=== PATIENT | female | born 1990 | race Caucasian/White ===

== ENCOUNTER 2016-09-16 09:29 | Emergency (ER) | payer BC ==
[2016-09-16 09:53] VITALS: BP 108/85
--- NOTE | 2016-09-16 10:50 | UC ---
Skin Complaint HPI - HPI Summary HPI Summary: This is an otherwise healthy 25 yo female who presented with c/o L ankle pain, swelling and erythema with associated rash. She noticed the redness and swelling yesterday associated with flu like symptoms. She did not check her temp at that time. Reports generalized aching, but no other joint involvement. She has blisters from her shoes on the back of both heels which she had covered with a BandAid. There is a rash over the medial aspect of the ankle. No recent injury or other trauma. - History of Current Complaint Chief Complaint: UCSkin Time Seen by Provider: 09/16/16 10:08 Stated Complaint: RASH LEFT FOOT ACHY Hx Last Menstrual Period: 09/21/15 - Allergy/Home Medications Allergies/Adverse Reactions: Allergies Allergy/AdvReac Type Severity Reaction Status Date / Time Penicillins Allergy Unknown unsure of Verified 09/16/16 09:53 reaction/as a kid Review of Systems Constitutional: Fever, Chills Skin: Rash Eyes: Negative ENT: Negative Respiratory: Negative Cardiovascular: Negative Gastrointestinal: Negative Genitourinary: Negative Motor: Negative Neurovascular: Negative Musculoskeletal: Arthralgia, Edema Neurological: Negative Psychological: Negative All Other Systems Reviewed And Are Negative: Yes PMH/Surg Hx/FS Hx/Imm Hx Previously Healthy: Yes - Surgical History Surgical History: Yes Surgery Procedure, Year, and Place: right ACL x2 - Family History Known Family History: Positive: Diabetes - GF, Other - no fmh of skin disorders - Social History Alcohol Use: Occasionally Substance Use Type: None Smoking Status (MU): Never Smoked Tobacco - Immunization History Most Recent Tetanus Shot: unknown Physical Exam Triage Information Reviewed: Yes Appearance: Well-Appearing Vital Signs: Initial Vital Signs Temp 98.8 F 09/16/16 09:48 Pulse 81 09/16/16 09:48 Resp 14 09/16/16 09:48 BP 108/85 09/16/16 09:48 Pulse Ox 100 09/16/16 09:48 Vital Signs Reviewed: Yes Respiratory Exam: Normal Respiratory: Positive: Lungs clear, Normal breath sounds Cardiovascular: Positive: RRR, No Murmur Abdomen Description: Positive: Nontender, No Organomegaly, Soft Musculoskeletal: Positive: ROM Limited @ - mildly reduced in L ankle, Edema @ - L ankle effusion Neurological Exam: Normal Neurological: Positive: Alert Skin: Positive: Other - erythema of ankle medial and lateral aspects of the joint, macular rash of medial joint line, not within the distribution of recent bandaid use Course/Dx - Course Course Of Treatment: This is an otherwise healthy 25 yo female who presents with 1d h/o ankle edema, erythema and associated rash of the L ankle. With associated flu like symptoms. Patient is concerned about Lyme, but rash is not consistent with this. Very little pain with ROM making gout and septic arthritis less likely. She does have a blister in the area as a potential port of entry for infection. Will treat empirically for cellulitis. - Differential Diagnoses - Skin Complaint Differential Diagnoses: Abscess, Cellulitis, Contact Dermatitis, Poison Alecia - Diagnoses Provider Diagnoses: 1. Probable cellulitis L ankle Discharge - Discharge Plan Condition: Stable Disposition: HOME Prescriptions: DOXYcycline CAP(*) [DOXYcycline 100MG CAP(*)] 100 mg PO BID #20 cap Patient Education Materials: Cellulitis (ED) Referrals: Non Staff,Doctor [Primary Care Provider] - Additional Instructions: Activity: As tolerated Instructions: 1. Take antibiotics as directed 2. Elevate the leg and apply ice 3. Take 600-800mg ibuprofen three times daily as needed for pain/swelling
== END 2016-09-16 10:50 | disposition home or self-care (01) ==
LOC: UCCORT 09:29
DX: S90.522A Blister (nonthermal), left ankle, initial encounter (principal); R21 Rash and other nonspecific skin eruption; Z88.0 Allergy status to penicillin; X58.XXXA Exposure to other specified factors, initial encounter; Y92.9 Unspecified place or not applicable
CPT/HCPCS: 99212; G0463